=== PATIENT | male | born 2000 | race African-American/Black ===

== ENCOUNTER 2025-08-18 00:58 | Emergency (ER) | payer OTHER ==
[~2025-08-18] VITALS: Ht 172.7 cm; Wt 63.5 kg
[2025-08-18 01:39] LABS: PLATELET COUNT (AUTO) 228 K/uL (152-348); RED BLOOD CELL COUNT(AUTO) 3.95 MIL/uL (4.06-5.63); RED CELL DISTRIBUTION WIDTH 15.3 % (12.1-16.2); WHITE BLOOD COUNT (AUTO) 4.9 K/uL (3.6-10.2)
[2025-08-18] MEDS ORDERED: NALOXONE HCL 0.4 MG/ML AMPUL ONE (01:42)
[2025-08-18] MEDS: NALOXONE HCL 0.4 MG/ML AMPUL IV ONE (01:46)
[2025-08-18 01:47] LABS: CREATININE 1.0 mg/dL (0.6-1.3); SODIUM SERUM 141 mmol/L (136-145); UREA NITROGEN, BLOOD 13 mg/dL (7-18)
[2025-08-18 01:53] LABS: ETHANOL < 3 MG/DL (0-10)
[2025-08-18 02:02] LABS: ASPARTATE AMINOTRANSFERASE 14 U/L (15-37); TOTAL PROTEIN, SERUM 6.6 g/dL (6.4-8.2)
[2025-08-18 05:00] VITALS: BP 99/60
[2025-08-18 06:16] LABS: *BILIRUBIN,URIN NEGATIVE (NEGATIVE); *BLOOD, URINE NEGATIVE (NEGATIVE); *CLARITY,URINE CLEAR (CLEAR); *COLOR,URINE YELLOW (YELLOW); *KETONES,URINE NEGATIVE (NEGATIVE); *PROTEIN,URINE NEGATIVE (NEGATIVE); *UROBILINOGEN,URINE 1.0 E.U./dl (NORMAL); LEUKOCYTE ESTERASE ,URINE NEGATIVE (NEGATIVE); NITRITE, URINE NEGATIVE (NEGATIVE); UGLUCOSE NEGATIVE (NEGATIVE)
[2025-08-18 06:34] LABS: SQUAMOUS EPITHELIAL CELL,UR FEW /HPF (NONE SEEN)
[2025-08-18 06:42] LABS: *AMPHETAMINE, URINE NEGATIVE (NEGATIVE); *BARBITURATE, URINE NEGATIVE (NEGATIVE); *BENZODIAZEPINE, URINE POSITIVE (NEGATIVE); *CANNABINOID, URINE POSITIVE (NEGATIVE); *COCCAINE, URINE POSITIVE (NEGATIVE); *OPIATE, URINE POSITIVE (NEGATIVE); *PHENCYCLIDINE SCREEN,URINE NEGATIVE (NEGATIVE)
[2025-08-18 06:51] LABS: FENTANYL, URINE NEGATIVE (NEGATIVE)
[2025-08-18 07:08] VITALS: BP 99/60; TEMP 98; O2SAT 100
== END 2025-08-18 07:09 | disposition home or self-care (01) ==
LOC: ER 01:08
DX: T42.4X1A Poisoning by benzodiazepines, accidental (unintentional), initial encounter (principal); F19.11 Other psychoactive substance abuse, in remission; R00.2 Palpitations; F13.90 Sedative, hypnotic, or anxiolytic use, unspecified, uncomplicated; Y92.89 Other specified places as the place of occurrence of the external cause
CPT/HCPCS: 80076; 80048; 81001; 85025; 84484; 36415; 93005; 99285; 96374; 80299; 80320; 80307; J2312; A4606; A4663; G0480